=== PATIENT | female | born 1980 | race Caucasian/White ===

== ENCOUNTER → 2021-12-22 | Outpatient (CLI) | payer OTHER | LOC: MAMMO 11-24 15:30 | PROVIDERS: ATTEND Internal Medicine | DX: Z12.31 Encounter for screening mammogram for malignant neoplasm of breast (principal); N64.89 Other specified disorders of breast ==

== ENCOUNTER 2022-09-15 12:17 | Emergency (ER) | payer OTHER ==
[~2022-09-15] VITALS: Wt 59.0 kg
[2022-09-15] MEDS ORDERED: CELEXA40 MG PO (12:33)
[2022-09-15] MEDS ORDERED: AMBIEN5 MG PO (12:34)
[2022-09-15] MEDS ORDERED: BUSPAR5 MG PO (12:34)
[2022-09-15] MEDS ORDERED: KETOROLAC10 MG PO (14:08)
[2022-09-15] MEDS ORDERED: PREDNISONE50 MG PO (14:10)
== END 2022-09-15 14:12 | disposition home or self-care (01) ==
LOC: ED 12:17
DX: F07.81 Postconcussional syndrome (principal); K45.8 Other specified abdominal hernia without obstruction or gangrene; M51.26 Other intervertebral disc displacement, lumbar region; Z91.041 Radiographic dye allergy status

== ENCOUNTER → 2023-11-22 | Outpatient (CLI) | payer OTHER ==
[~2023-11-22] MED LIST: AMBIEN5 MG PO; BUSPAR5 MG PO; CELEXA40 MG PO; KETOROLAC10 MG PO; PREDNISONE50 MG PO
== END | disposition home or self-care (01) ==
LOC: MAMMO 12:40
PROVIDERS: ATTEND Internal Medicine
DX: Z12.31 Encounter for screening mammogram for malignant neoplasm of breast (principal); Z98.890 Other specified postprocedural states; R92.1 Mammographic calcification found on diagnostic imaging of breast